=== PATIENT | female | born 1975 | race Caucasian/White ===

== ENCOUNTER 2018-06-15 00:14 | Inpatient (IN) | payer MEDICAID, OTHER ==
[~2018-06-15] VITALS: Ht 170.2 cm; Wt 99.8 kg
[2018-06-15] MEDS ORDERED: METHYLERGONOVINE MALEATE 0.2 MG/ML IM PRN (03:30)
[2018-06-15] MEDS ORDERED: NALOXONE HCL 0.4 MG/ML 1ML VIAL IM PRN (03:30)
[2018-06-15] MEDS ORDERED: LIDOCAINE HCL 1% 20ML VIAL (Pyxis) INJ INFIL SCH (03:30)
[2018-06-15] MEDS ORDERED: BUTORPHANOL TARTRATE 2 MG/ML VIAL IV PRN (03:30)
[2018-06-15] MEDS: MISOPROSTOL 100MCG TABLET VG PRN ×3 (04:06→19:35)
[2018-06-15] MEDS: LACTATED RINGERS 1,000 ML IV SCH ×4 (04:08→20:58)
[2018-06-15 05:13] LABS: BASOPHILS % 0.4 % (0.0-2.0); EOSINOPHILS % 0.7 % (0.0-5.0); HEMATOCRIT. 44.8 % (36.0-48.0); HEMOGLOBIN. 15.2 g/dL (12.0-16.0); LYMPHOCYTES % 19.7 % (20.0-50.0); MEAN CORPUSCULAR HEMOGLOBIN 33.1 pg (28.0-32.0); MEAN CORPUSCULAR VOLUME 97.7 fL (81.0-99.0); MEAN PLATELET VOLUME 12.3 fl (7.4-10.4); MONOCYTES % 7.7 % (2.0-8.0); NEUTROPHILS % 71.5 % (40.0-76.0); PLATELET 117 x1000/uL (130-400); RED BLOOD CELL COUNT 4.58 mill/uL (4.2-5.4); RED CELL DISTRIBUTION WIDTH 14.8 % (11.6-14.6)
[2018-06-15 05:17] LABS: CLARITY URINE CLEAR (CLEAR); COLOR URINE YELLOW (YELLOW); KETONES URINE NEGATIVE (NEGATIVE); LEUKOCYTE ESTERASE URINE TRACE (NEGATIVE); NITRITE URINE NEGATIVE (NEGATIVE); OCCULT BLOOD URINE NEGATIVE (NEGATIVE); PH URINE 6.5 (4.5-8.0); PROTEIN URINE NEGATIVE (NEGATIVE); SPECIFIC GRAVITY URINE 1.005 (1.005-1.030); UROBILINOGEN URINE 0.2 E.U./dL (0.2-1.0)
[2018-06-15 05:30] LABS: PARTIAL THROMBOPLASTIN TIME 29.3 sec (23.4-31.0); PROTHROMBIN TIME 10.5 sec (9.1-11.1)
[2018-06-15 05:35] LABS: *AMPHETAMINES SCREEN URINE NEGATIVE (NEGATIVE); *BARBITURATES SCREEN URINE NEGATIVE (NEGATIVE)
[2018-06-15 05:36] LABS: *BENZODIAZEPINES SCREEN URINE NEGATIVE (NEGATIVE); *COCAINE SCREEN URINE NEGATIVE (NEGATIVE); CANNABINOID URINE SCREEN NEGATIVE (NEGATIVE); METHADONE URINE SCREEN NEGATIVE (NEGATIVE); OPIATES URINE SCREEN NEGATIVE (NEGATIVE); PHENCYCLIDINE URINE SCREEN NEGATIVE (NEGATIVE)
[2018-06-15 05:53] LABS: HEPATITIS B SURFACE ANTIGEN NEGATIVE
[2018-06-15] MEDS ORDERED: LEVOTHYROXINE SODIUM 150MCG TABLET PO NR (13:00)
[2018-06-15] MEDS ORDERED: GLYB5TAB7 MT (13:21)
[2018-06-15] MEDS ORDERED: SYN150 MT (13:21)
[2018-06-16] MEDS: LACTATED RINGERS 1,000 ML IV SCH (05:42)
[2018-06-16] MEDS ORDERED: OXYTOCIN 10 UNITS/ML 1ML ONE (09:36)
[2018-06-16] MEDS ORDERED: INFLUENZA VIRUS VACCINE(AFLURIA) 0.5ML SYR IM ONE (10:00)
[2018-06-16] MEDS ORDERED: GLYCOPYRROLATE 0.2 MG/ML 2ML VIAL ONE (10:00)
[2018-06-16] MEDS ORDERED: ONDANSETRON HCL 4MG/2ML INJ ONE (10:00)
[2018-06-16] MEDS ORDERED: EPHEDRINE SULFATE 50MG/ML VIAL ONE (10:00)
[2018-06-16] MEDS ORDERED: PHENYLEPHRINE HCL 10 MG/ML 1ML (IV VIAL) IV ONE (10:00)
[2018-06-16] MEDS ORDERED: MORPHINE SULFATE/PF 1MG/ML 10ML AMP ONE (10:01)
[2018-06-16] MEDS ORDERED: FENTANYL CITRATE/PF 50MCG/ML 2ML VIAL ONE (10:01)
[2018-06-16] MEDS ORDERED: BUPIVACAINE HCL/DEXTROSE/PF 0.75% 2ML AMP INJ ONE (10:01)
[2018-06-16] MEDS ORDERED: CEFAZOLIN 2000MG PREMIX 50 ML IV ONE (10:01)
[2018-06-16] MEDS ORDERED: DEXT 5%/LR + PITOCIN 20UNITS/L 1,000 ML IV SCH (11:04)
[2018-06-16] MEDS ORDERED: ONDANSETRON HCL 4MG/2ML INJ IV PRN (11:15)
[2018-06-16] MEDS ORDERED: IBUPROFEN 400MG TABLET PO PRN (11:15)
[2018-06-16] MEDS ORDERED: LEVOTHYROXINE SODIUM 150MCG TABLET PO NR (11:15)
[2018-06-16] MEDS ORDERED: LANOLIN OINT 0.25 GM TUBE TOP PRN (11:15)
[2018-06-16] MEDS ORDERED: NALOXONE HCL 0.4 MG/ML 1ML VIAL IV PRN (11:30)
[2018-06-16] MEDS ORDERED: BUTORPHANOL TARTRATE 2 MG/ML VIAL IM PRN (11:30)
[2018-06-16] MEDS ORDERED: BUTORPHANOL TARTRATE 2 MG/ML VIAL IV PRN (11:30)
[2018-06-16] MEDS ORDERED: DIPHENHYDRAMINE 50MG/ML VIAL IV PRN (11:30)
[2018-06-16] MEDS: OXYTOCIN 20 UNITS in LACTATED RINGERS 1,000 ML IV SCH ×2 (12:14→22:33)
[2018-06-16 13:00] VITALS: BP_SYST 104; BP_SYST 107; BP_DIAS 53; BP_DIAS 55
[2018-06-16 13:30] VITALS: BP_SYST 107; BP_SYST 109; BP_DIAS 55; BP_DIAS 60
[2018-06-16 15:00] VITALS: BP 109/60
[2018-06-16 19:45] VITALS: BP 101/62
[2018-06-16 20:54] VITALS: BP 100/69
[2018-06-16] MEDS: HYDROMORPHONE HCL/PF 2MG/ML CPJ IM PRN (20:54)
[2018-06-16] MEDS ORDERED: DIPHENHYDRAMINE 25MG CAPSULE PO PRN (21:00)
[2018-06-16] MEDS: DOCUSATE SODIUM 100MG CAPSULE PO SCH (21:00)
[2018-06-16] MEDS: SIMETHICONE 80MG TABLET CHEW PO SCH (21:00)
[2018-06-17] VITALS: BP 105/51
[2018-06-17 05:44] VITALS: BP 105/59
[2018-06-17] MEDS: HYDROMORPHONE HCL/PF 2MG/ML CPJ IM PRN (05:45)
[2018-06-17] MEDS: OXYTOCIN 20 UNITS in LACTATED RINGERS 1,000 ML IV SCH (07:24)
[2018-06-17 07:51] VITALS: BP 102/50
[2018-06-17 08:02] LABS: BASOPHILS % 0.3 % (0.0-2.0); EOSINOPHILS % 0.8 % (0.0-5.0); HEMATOCRIT. 39.1 % (36.0-48.0); HEMOGLOBIN. 13.3 g/dL (12.0-16.0); LYMPHOCYTES % 10.3 % (20.0-50.0); MEAN CORPUSCULAR HEMOGLOBIN 33.1 pg (28.0-32.0); MEAN CORPUSCULAR VOLUME 97.1 fL (81.0-99.0); MEAN PLATELET VOLUME 11.9 fl (7.4-10.4); MONOCYTES % 8.7 % (2.0-8.0); NEUTROPHILS % 79.9 % (40.0-76.0); PLATELET 104 x1000/uL (130-400); RED BLOOD CELL COUNT 4.02 mill/uL (4.2-5.4); RED CELL DISTRIBUTION WIDTH 14.4 % (11.6-14.6)
[2018-06-17] MEDS: SIMETHICONE 80MG TABLET CHEW PO SCH ×4 (08:39→21:00)
[2018-06-17] MEDS: PRENATAL VIT/FE FUMARATE/FA TABLET PO SCH (08:40)
[2018-06-17] MEDS: FERROUS SULFATE 325MG TABLET PO SCH ×2 (12:57→17:26)
[2018-06-17] MEDS: IBUPROFEN 800MG TABLET PO PRN ×2 (12:57→19:40)
[2018-06-17 15:26] VITALS: BP 99/56
[2018-06-17 19:50] VITALS: BP 108/62
[2018-06-17] MEDS: DOCUSATE SODIUM 100MG CAPSULE PO SCH (21:00)
[2018-06-17] MEDS: HYDROCODONE/ACETAMINOPHEN 5/325MG TABLET PO PRN (21:11)
[2018-06-18 04:20] VITALS: BP 94/53
[2018-06-18] MEDS: LEVOTHYROXINE SODIUM 150MCG TABLET PO SCH ×2 (06:59→07:15)
[2018-06-18 08:00] VITALS: BP 104/61
[2018-06-18] MEDS: PRENATAL VIT/FE FUMARATE/FA TABLET PO SCH (08:47)
[2018-06-18] MEDS: HYDROCODONE/ACETAMINOPHEN 5/325MG TABLET PO PRN ×4 (08:48→22:06)
[2018-06-18] MEDS: FERROUS SULFATE 325MG TABLET PO SCH ×3 (08:48→17:12)
[2018-06-18] MEDS: SIMETHICONE 80MG TABLET CHEW PO SCH ×3 (08:48→17:12)
[2018-06-18] MEDS ORDERED: BISACODYL 10MG SUPP PR NR (09:30)
[2018-06-18 12:00] VITALS: BP 130/64
[2018-06-18 16:00] VITALS: BP 125/65
[2018-06-18] MEDS: IBUPROFEN 800MG TABLET PO PRN (16:33)
[2018-06-18] MEDS ORDERED: TETANUS, DIPHTHERIA, PERTUSSIS VAC/PF 0.5ML (>7YR OLD) IM ONE (19:45)
[2018-06-18 20:00] VITALS: BP 100/60
[2018-06-18] MEDS: DOCUSATE SODIUM 100MG CAPSULE PO SCH (21:59)
[2018-06-19] VITALS: BP 122/66
[2018-06-19] MEDS: IBUPROFEN 800MG TABLET PO PRN (02:34)
[2018-06-19 04:00] VITALS: BP 125/58
[2018-06-19] MEDS: SIMETHICONE 80MG TABLET CHEW PO SCH ×2 (08:07→14:33)
[2018-06-19] MEDS: PRENATAL VIT/FE FUMARATE/FA TABLET PO SCH (08:07)
[2018-06-19] MEDS: FERROUS SULFATE 325MG TABLET PO SCH (08:07)
[2018-06-19] MEDS: LEVOTHYROXINE SODIUM 150MCG TABLET PO SCH (08:07)
[2018-06-19 08:20] VITALS: BP 110/64
[2018-06-19] MEDS ORDERED: BISACODYL 10MG SUPP PR NR (14:45)
== END 2018-06-19 15:50 | disposition home or self-care (01) | DRG 540 ==
LOC: 8 EST LDRP 00:14 → OBSVTOIN 00:14 → 8 EST LDRP 12:59 → 8 EST A/PP 06-16 13:00
PROVIDERS: ADMIT Specialist; ATTEND Specialist
PROC: 10D00Z1 Extraction of Products of Conception, Low, Open Approach (ICD-10-PCS; principal; 2018-06-16)
PROC: 0UB70ZZ Excision of Bilateral Fallopian Tubes, Open Approach (ICD-10-PCS; 2018-06-16)
DX: O24.429 Gestational diabetes mellitus in childbirth, unspecified control (principal); D25.9 Leiomyoma of uterus, unspecified; E03.9 Hypothyroidism, unspecified; O69.81X0 Labor and delivery complicated by cord around neck, without compression, not applicable or unspecified; O34.13 Maternal care for benign tumor of corpus uteri, third trimester; R77.2 Abnormality of alphafetoprotein; O36.63X0 Maternal care for excessive fetal growth, third trimester, not applicable or unspecified; O99.284 Endocrine, nutritional and metabolic diseases complicating childbirth; Z30.2 Encounter for sterilization; O09.523 Supervision of elderly multigravida, third trimester; Z3A.39 39 weeks gestation of pregnancy; Z37.0 Single live birth
CPT/HCPCS: 36415; 76805; 80305; 82947; 82962; 86592; 86703; 86762; 86850; 86900; 87340; 88302; 88307; 90686; 90715; 99281; G0378; J0595; J0690; J1170; J2274; J2370; J2405; J3010; J3490; J7120; Q0163